=== PATIENT | female | born 1985 | race Caucasian/White ===

== ENCOUNTER 2018-06-01 14:58 | Outpatient (CLI) | payer OTHER ==
[2018-06-01 15:44] LABS: Hemoglobin 14.3 g/dL (12.0-16.0); Mean Corpuscular HGB CONC 34.5 g/dL (32.0-36.0); Mean Corpuscular Hemoglobin 31.9 pg (27.0-31.0); Mean Corpuscular Volume 92.4 fL (78.0-98.0); Mean Platelet Volume 7.5 fL (7.4-10.4); Platelet Count 292 thou/uL (130-400); RBC Distribution Width 11.3 % (11.5-14.5); Red Blood Cell (RBC) Count 4.49 mill/uL (4.20-5.40); White Blood Cell (WBC) Count 6.4 thou/uL (4.8-10.8)
[2018-06-01 16:13] LABS: Anion Gap 11 mmol/L (10-20); BUN (Urea Nitrogen) 16 mg/dL (7.0-18.7); Calc. Creatinine Clearance 0 mL/min (70-130); Calcium 8.8 mg/dL (7.8-10.44); Carbon Dioxide 26 mmol/L (22-29); Chloride 104 mmol/L (98-107); Estimated GFR-MDRD 77; Glucose 88 mg/dL (70-105); Potassium 3.6 mmol/L (3.5-5.1); Sodium 137 mmol/L (136-145)
[2018-06-01 16:28] LABS: BHCG - Serum Negative (NEGATIVE); Pregs Control Background? CLEAR/WHITE (CLR/WHITE); Pregs Control Bar Appear? YES (CONTROL BAR)
--- NOTE | 2018-06-01 22:46 | EKG ---
Test Reason : Blood Pressure : / mmHG Vent. Rate : 082 BPM Atrial Rate : 082 BPM P-R Int : 134 ms QRS Dur : 086 ms QT Int : 344 ms P-R-T Axes : 083 084 074 degrees QTc Int : 401 ms Normal sinus rhythm Normal ECG When compared with ECG of 30-MAR-2016 14:10, No significant change was found Confirmed by ANITRA GAGNON, DR. Wall ([id number]) on 06/01/2018 10:46:44 PM Referred By: KALPANA Confirmed By:DR. Duke AYOUB MD
== END 2018-06-01 14:59 | disposition home or self-care (01) ==
LOC: LABBT 14:58
PROVIDERS: ATTEND Neurological Surgery
DX: Z01.818 Encounter for other preprocedural examination (principal); M54.16 Radiculopathy, lumbar region
CPT/HCPCS: 80048; 84703; 85027; 93005; 93010

== ENCOUNTER 2018-06-04 07:21 | Day surgery (SDC) | payer OTHER ==
[2018-06-01 15:09] VITALS: BMI 21.4
[2018-06-04] MEDS ORDERED: CEFAZOLIN 2 GM/50 ML BAG ONE ×2 (07:53→08:26)
[2018-06-04] MEDS ORDERED: HYDROmorphone 2 MG/ML VIAL ONE (10:10)
[2018-06-04] MEDS ORDERED: Fentanyl 100 MCG/2 ML VIAL ONE ×4 (10:10→12:58)
[2018-06-04] MEDS ORDERED: Promethazine HCl 25 MG/ML VIAL ONE (12:02)
[2018-06-04] MEDS ORDERED: Ondansetron PF 4 MG/2 ML Vial ONE (14:40)
[2018-06-04] MEDS ORDERED: PROPOFOL 200 MG/20 ML VIAL ONE (14:40)
[2018-06-04] MEDS ORDERED: Glycopyrrolate 0.2 MG/ML 5 ML SYRINGE ONE (14:40)
[2018-06-04] MEDS ORDERED: Lidocaine 1% PF 5 ML VIAL ONE (14:40)
[2018-06-04] MEDS ORDERED: Dexamethasone 20 MG/5 ML VIAL ONE (14:40)
[2018-06-04] MEDS ORDERED: HYDROcodone/Acetaminophen 5/325 mg Tablet ONE (15:05)
[2018-06-04] MEDS ORDERED: tiZANidine HCl 4 MG TAB ONE (17:14)
--- NOTE | 2018-06-07 14:38 | OP ---
DATE OF PROCEDURE: 06/04/2018 RETAIL CUST[employer]ER SERVICE REPRESENTATIVE: Gregorio. PROCEDURE PERFORMED: Left L4-L5 microdiskectomy. DESCRIPTION OF PROCEDURE: The patient was brought to the operating room and intubated. She was rolled in the prone position on gel-filled chest rolls. We explored the L4-L5 on the left and the level was confirmed by x-ray. We performed L4-L5 hemilaminectomy, identified ligament, removed this and identified the left L5 nerve foot. Beneath this was a very large disk herniation that was removed and then debrided into multiple fragments. A complete decompression was achieved. The wound was then extensively irrigated. Immaculate hemostasis was secured. Vancomycin powder was applied and the wound was closed in anatomic layers. Job ID: [id number]
== END 2018-06-04 18:04 | disposition home or self-care (01) ==
LOC: SDC 07:21
PROVIDERS: ATTEND Neurological Surgery
PROC: 0SB20ZZ Excision of Lumbar Vertebral Disc, Open Approach (ICD-10-PCS; principal; 2018-06-04)
PROC: 01NB0ZZ Release Lumbar Nerve, Open Approach (ICD-10-PCS; principal; 2018-06-04)
DX: M51.16 Intervertebral disc disorders with radiculopathy, lumbar region (principal); Z79.899 Other long term (current) drug therapy
CPT/HCPCS: 76001; 96374; J1100; J1170; J2001; J2405; J2550; J2704; J3010; J3370

== ENCOUNTER 2018-06-17 21:09 | Emergency (ER) | payer OTHER ==
[2018-06-17 22:40] LABS: #Basophils 0.1 thou/uL (0.0-0.2); #Eosinphils 0.2 thou/uL (0.0-0.7); #Lymphocytes 3.6 thou/uL (1.20-3.40); #Monocytes 0.6 thou/uL (0.11-0.59); #Neutrophils 3.2 thou/uL (1.40-6.50); %Basophils 1.4 % (0.0-1.0); %Lymphocytes 46.4 % (21.0-51.0); %Monocytes 7.5 % (0.0-10.0); %Neutrophils 41.6 % (42.0-75.0); Hemoglobin 12.9 g/dL (12.0-16.0); Mean Corpuscular HGB CONC 33.9 g/dL (32.0-36.0); Mean Corpuscular Hemoglobin 31.4 pg (27.0-31.0); Mean Corpuscular Volume 92.6 fL (78.0-98.0); Mean Platelet Volume 7.5 fL (7.4-10.4); Platelet Count 309 thou/uL (130-400); Red Blood Cell (RBC) Count 4.11 mill/uL (4.20-5.40); White Blood Cell (WBC) Count 7.7 thou/uL (4.8-10.8)
--- NOTE | 2018-06-17 23:29 | ULT ---
LEFT LOWER EXTREMITY VENOUS DUPLEX STUDY: Technique: Deep veins of left lower extremity evaluated with color doppler, spectral analysis and com pression. Indications: Left lower extremity pain and edema status post back surgery. FINDINGS: Deep veins of the left lower extremity show normal blood flow and compression. No evidence of DVT. IMPRESSION: No evidence of left lower extremity DVT. POS: [facility]AI
[2018-06-17] MEDS ORDERED: Lidocaine 1% w/Epinephrine 1:100K 20 ML VIAL ONE (23:41)
== END 2018-06-17 23:57 | disposition home or self-care (01) ==
LOC: ERS 21:09
DX: R20.2 Paresthesia of skin (principal); F32.9 Major depressive disorder, single episode, unspecified; Z79.899 Other long term (current) drug therapy
CPT/HCPCS: 36415; 85025; 86140; J2001